=== PATIENT | female | born 1990 | race American Indian/Alaskan Native ===

== ENCOUNTER 2018-05-09 14:00 | Emergency (ER) | payer MEDICAID, OTHER ==
--- NOTE | 2018-05-09 14:07 | Emergency Department Report ---
Blank Doc - Documentation Documentation: This is a 27-year-old female that presents with URI symptoms. This initial assessment diagnostic orders/clinical plan/treatment(s) is/are subject to change based on patient's health status, clinical progression and re- assessment by fellow clinical providers in the ED. Further treatment and workup at subsequent clinical providers discretion. Patient/guardians urged not to elope from ED s their condition may be serious if not clinically assessed and managed. Initial orders include: 1-Patient sent to [facility] for further evaluation and treatment 2- xray
[2018-05-09 14:08] VITALS: BP 130/81
--- NOTE | 2018-05-09 14:28 | Emergency Department Report ---
Minor Respiratory - HPI Chief Complaint: Upper Respiratory Infection Stated Complaint: CHEST TIGHT/COUGHING/BODY PAIN Time Seen by Provider: 05/09/18 14:06 Duration: 1 week Pain Location: Throat Severity: moderate Minor Respiratory: Yes Rhinorrhea, Yes Sore Throat, Yes Able to Tolerate Fluids, Yes Cough, Yes Fever, No Ear Pain, No Sick Contacts, No Hemoptysis, No Chest Pain, No Shortness of Breath Other History: chills, sinus congestion, drainage, cough x 1 week ED Review of Systems ROS: Stated complaint: CHEST TIGHT/COUGHING/BODY PAIN Other details as noted in HPI Comment: All other systems reviewed and negative Constitutional: see HPI ENT: as per HPI Respiratory: see HPI ED Past Medical Hx - Past Medical History Previous Medical History?: Yes Hx Hypertension: Yes (during ) - Surgical History Past Surgical History?: No - Social History Smoking Status: Never Smoker Substance Use Type: None - Medications Home Medications: Home Medications Medication Instructions Recorded Confirmed Last Taken Type Acetaminophen [Tylenol] 1,000 mg PO Q6HR #20 tablet 07/27/15 Unknown Rx Omeprazole [PriLOSEC] 20 mg PO QDAY #14 capsule.dr 07/27/15 Unknown Rx Albuterol Sulfate [Ventolin Hfa] 1 - 2 inhalation IH 4XD PRN #1 05/09/18 Unknown Rx hfa.aer.ad Doxycycline Hyclate [Vibramycin] 100 mg PO BID #20 capsule 05/09/18 Unknown Rx methylPREDNISolone [Medrol] 4 mg PO QAM #1 tab.ds.pk 05/09/18 Unknown Rx Minor Respiratory Exam - Exam General: Vital signs noted. No distress. Alert and acting appropriately. HEENT: Yes Moist Mucous Membranes, No Pharyngeal Erythema, No Pharyngeal Exudates, No Rhinorrhea, No Conjuctival Injection, No Frontal Tenderness, No Maxillary Tenderness Ear: Neither TM Bulge, Neither TM Erythema, Neither EAC Pain, Neither EAC Discharge Neck: Yes Supple, No Adenopathy Lungs: Yes Wheezes, Yes Cough, No Good Air Exchange (diminished), No Ronchi, No Stridor, No Labored Respirations, No Retractions, No Use of Accessory Muscles, No Other Abnormal Lung Sounds Heart: Yes Regular, No Murmur Abdomen: Yes Normal Bowel Sounds, No Tenderness, No Peritoneal Signs Skin: No Rash, No Edema Neurologic: Alert and oriented, no deficits. Musculoskeletal: Unremarkable. ED Course Vital Signs 05/09/18 14:06 Temperature 98.8 F Pulse Rate 114 H Respiratory 16 Rate Blood Pressure 130/81 O2 Sat by Pulse 100 Oximetry ED Medical Decision Making - Radiology Data Radiology results: image reviewed interpreted by me: ricardo - Medical Decision Making URI sx sinusitis vs bronchitis vs pna cxr, manage accordingly pt is a smoker, so will do abx - Differential Diagnosis bronchitis, pna, sinusitis Critical care attestation.: If time is entered above; I have spent that time in minutes in the direct care of this critically ill patient, excluding procedure time. ED Disposition Clinical Impression: Acute bacterial bronchitis Acute sinusitis Qualifiers: Sinusitis location: unspecified location Recurrence: not specified as recurrent Qualified Code(s): J01.90 - Acute sinusitis, unspecified Disposition: TO HOME OR SELFCARE Is pt being admited?: No Condition: Good Instructions: Acute Bronchitis (ED) Prescriptions: Albuterol Sulfate [Ventolin Hfa] 1 - 2 inhalation IH 4XD PRN #1 hfa.aer.ad PRN Reason: wheezing Doxycycline Hyclate [Vibramycin] 100 mg PO BID #20 capsule methylPREDNISolone [Medrol] 4 mg PO QAM #1 tab.ds.pk Referrals: DOUSMAN ROBERTAJUAN RAMONOLIVE MD JOSIAS [Primary Care Provider] - 3-5 Days Time of Disposition: 16:17
[2018-05-09] MEDS ORDERED: DUONEB *Not for PRN Use IH ONE (14:29)
[2018-05-09 15:22] LABS: HCG Qualitative,Urine Negative (Negative)
--- NOTE | 2018-05-09 16:36 | XRay Report ---
FINAL REPORT EXAM: XR CHEST ROUTINE 2V HISTORY: cough TECHNIQUE: Frontal and lateral views of the chest. PRIORS: None currently available. FINDINGS: Cardiac silhouette is within normal limits. There is no effusion. There is no pneumothorax. There is no consolidation. There are no suspicious osseous lesions. IMPRESSION: No acute cardiopulmonary findings.
== END 2018-05-09 16:47 | disposition home or self-care (01) ==
LOC: ED 14:00
DX: J20.9 Acute bronchitis, unspecified (principal); J01.90 Acute sinusitis, unspecified; I10 Essential (primary) hypertension
CPT/HCPCS: 71046; 81025; 94640

== ENCOUNTER 2020-11-06 17:34 | Emergency (ER) | payer MEDICAID | END 2020-11-06 23:35 | disposition left against medical advice (07) | LOC: ED 17:34 | DX: R20.0 Anesthesia of skin (principal); Z53.21 Procedure and treatment not carried out due to patient leaving prior to being seen by health care provider ==